=== PATIENT | female | born 1955 | race Caucasian/White ===

== ENCOUNTER 2016-11-10 07:16 | Day surgery (SDC) | payer BC ==
--- NOTE | 2016-11-03 13:48 | HISTORY AND PHYSICAL E ---
History and Physical NAME: ANGELA RIVERA : 1955 AGE: 61Y ADMITTED: 11/10/2016 ROOM: CHIEF COMPLAINT: Diarrhea, constipation, abdominal pain, gastric polyps. MEDICATIONS: 1. Mobic. 2. Miralax. 3. Prilosec. 4. Probiotics. The patient was seen in 2012. The scope showed duodenitis. The colon shows no polyps. Biopsy negative. H. pylori negative. No ulcers, esophagitis, gastritis, duodenitis. REVIEW OF SYSTEMS: CARDIAC: Negative. ENDOCRINE: Negative. GASTROINTESTINAL: Reflux. FAMILY HISTORY: Father has diabetes. Mom is . Mom passed at age 81. EXAM: GENERAL: Pleasant, alert, oriented. VITAL SIGNS: Blood pressure 140/80, pulse 70, respirations 18, temperature 98. HEAD, EYES, EARS, NOSE AND THROAT: Normal. ABDOMEN: Soft. NEUROLOGIC EXAM: Negative. CONCLUSION: Reflux. PLAN: Upper scope. She did have a colonoscopy in 2011 that showed diverticulosis. She did have history *------* polyps, *------*, diverticulosis, benign rectal biopsy. She does have multiple gastric polyps at this time. The patient's colon shows sigmoid diverticulosis, hemorrhoids, no polyps. DICTATING PHYSICIAN: ABEL MCCLAIN M.D. [id number] PHY#: [id number] ID: [id number] JOB#: [id number] ACCT: [id number] cc: >
[2016-11-10] MEDS ORDERED: PROMETHAZINE HCL INJ 25 MG/1 ML VIAL ONE (07:33)
[2016-11-10] MEDS ORDERED: NALOXONE HCL INJ/PF 0.4 MG/1 ML SDV ONE (07:33)
[2016-11-10] MEDS ORDERED: ONDANSETRON HCL INJ/PF 4 MG/2 ML SDV ONE (07:33)
[2016-11-10] MEDS ORDERED: GLYCOPYRROLATE INJ 0.4 MG/2 ML VIAL ONE (07:33)
[2016-11-10] MEDS ORDERED: EPINEPHRINE INJ 1 MG/10 ML DISP.SYRIN ONE (07:35)
[2016-11-10] MEDS ORDERED: FLUMAZENIL INJ 0.5 MG/5 ML VIAL IV ONE (07:35)
[2016-11-10] MEDS ORDERED: FENTANYL CITRATE INJ/PF 100 MCG/2 ML AMPUL ONE (07:35)
[2016-11-10] MEDS: MIDAZOLAM 2 MG/2 ML INJ ONE ×2 (08:12→08:18)
[2016-11-10 09:21] VITALS: BP 118/70
--- NOTE | 2016-11-10 14:47 | DISCHARGE SUMMARY E ---
Discharge Summary NAME: ANGELA RIVERA : 1955 AGE: 61Y ADMITTED: 11/10/2016 DISCHARGED: PROCEDURES: 1. EGD. 2. Biopsy. HISTORY: Pleasant, 61, underwent upper scope today. Shows gastric polyps, benign; mild esophagitis, gastritis, duodenitis. GE junction was at 38, no stricture. However, the scope shows benign polyps. No ulcers, mild gastritis, esophagitis, duodenitis. DISCHARGE PLAN: 1. PPI. 2. Soft diet. 3. Hold aspirin. 4. Hold Mobic. 5. Awaiting biopsy results. 6. Follow-up office visit in the next few days. DICTATING PHYSICIAN: ABEL MCCLAIN M.D. [id number] PHY#: [id number] ID: [id number] JOB#: [id number] ACCT: [id number] cc:ABEL MCCLAIN M.D. >
--- NOTE | 2016-11-10 15:14 | OPERATIVE REPORT E ---
Operative Report NAME: ANGELA RIVERA : 1955 AGE: 61Y DATE OF SURGERY: 11/10/2016 ROOM: PREOPERATIVE DIAGNOSIS: Exacerbation of gastroesophageal reflux disease. PROCEDURE: Esophagoscopy, gastroscopy, duodenoscopy. SURGEON: ABEL MCCLAIN M.D. ANESTHESIA: Versed 3 mg and Fentanyl 50 mcg. TISSUE REMOVED OR ALTERED: Gastric biopsy, multiple. FINDINGS: Benign-looking gastric polyps, 3-4, and there was 1 polyp below the GE junction 2-3 mm in size each. The patient did have mild esophagitis, mild gastritis, mild duodenitis. Multiple benign-looking gastric polyps. Multiple biopsies obtained. PROCEDURE: The baby scope was passed under guided vision with no difficulties. The oral airway was visualized. There is slight erythema in the vocal cords, mild erythema in the vocal cords. No evidence of malignancy. Enlarged tonsils. Esophagoscopy: Junction at 38, mild esophagitis, no stricture. Gastroscopy: Mild gastritis, multiple gastric polyps, no ulcers. Duodenoscopy: Mild duodenitis, no ulcers. CONCLUSIONS: Continue PPI. The patient takes Mobic; we will put this on hold for a few days pending the biopsy results. The patient needs to continue on PPI. DICTATING PHYSICIAN: ABEL MCCLAIN M.D. [id number] Y#: [id number] ID: [id number] JOB#: [id number] ACCT: [id number] cc:ABEL MCCLAIN M.D. >
== END 2016-11-10 09:30 | disposition home or self-care (01) ==
LOC: END 07:16
PROVIDERS: ATTEND Specialist
PROC: 0DB68ZX Excision of Stomach, Via Natural or Artificial Opening Endoscopic, Diagnostic (ICD-10-PCS; principal; 2016-11-10 08:00)
DX: K21.0 Gastro-esophageal reflux disease with esophagitis (principal); K31.7 Polyp of stomach and duodenum; K29.50 Unspecified chronic gastritis without bleeding; K29.80 Duodenitis without bleeding; Z79.1 Long term (current) use of non-steroidal anti-inflammatories (NSAID); Z79.899 Other long term (current) drug therapy
CPT/HCPCS: 43239; 88342 ×2; 88305 ×2; J2250; J3010; J2405; J0171; J2310; J2550; J3490